=== PATIENT | female | born 1945 ===

== ENCOUNTER 2024-09-30 10:56 | Day surgery (SDC) | payer OTHER ==
[2024-09-29 11:34] LABS: Absolute Basophils 0.1 K/uL (0-0.5); Absolute Eosinophils 0.1 K/uL (0-0.5); Absolute Lymphocytes (CBC) 2.9 K/uL (0.7-4.9); Absolute Monocytes 0.6 K/uL (0.1-1.3); Absolute Neutrophil 5.7 K/uL (1.8-8.0); Basophils % 0.8 % (0-1.3); Eosinophils % 1.2 % (0-4.4); Hematocrit 35.9 % (36.0-45.0); Hemoglobin 12.6 g/dL (12.0-15.0); Lymphocytes % 30.9 % (15.3-44.8); MCH 32.4 pg (27.0-35.0); MCHC 35.2 g/dL (32.0-36.0); MPV 9.5 fL (7.6-11.3); Monocytes % 6.7 % (3.3-12.3); Neutrophils % 60.4 % (41.7-73.7); Platelets 267 thou/uL (152-406); RBC Red Blood Cell Count 3.91 M/uL (3.86-4.86); Red Cell Distribution Width 12.7 % (12.1-15.2)
[2024-09-29 11:38] LABS: PT Prothrombin Time 10.5 SECONDS (10-13.0); PTT, Activated Partial Thromb 29.1 SECONDS (27.2-37.4); Protime INR 0.92
[2024-09-29 11:46] LABS: Anion Gap 9.8 mEq/L (5.0-15.0); Potassium 3.8 mEq/L (3.5-5.1)
--- NOTE | 2024-09-29 11:48 | RAD REPORT ---
EXAMINATION: TWO VIEW CHEST XR CLINICAL INDICATION: Pre-op pending heart catheterization TECHNIQUE: 2 views of the chest was performed. COMPARISON: No prior exam. FINDINGS: The lungs are hyperexpanded suggesting COPD. The heart is upper limit of normal in size. No displaced fractures evident. IMPRESSION: COPD is suspected without acute finding identified.
--- NOTE | 2024-09-30 08:37 | EKG ---
Test Date: 2024-09-29 Test Time: 10:38:29 [employer] Se[employer] Clerk: ANGÉLICA MEASUREMENT RESULTS: Intervals: Rate: 68 RI: 204 QRSD: 72 QT: 404 QTc: 429 [place]: P: 33 RI: 204 QRS: 12 T: 16 INTERPRETIVE STATEMENTS: Sinus rhythm with fusion complexes Cannot rule out Anterior infarct, age undetermined Abnormal ECG No previous ECG available for comparison Electronically Signed On 09-30-24 08:35:40 CDT by Tripp Murillo
[2024-09-30] MEDS ORDERED: NA CHLORIDE 0.9% 500 ML ONE (10:57)
[2024-09-30] MEDS ORDERED: HEPARIN 10,000 UNIT/10 ML VIAL IV ONE (11:34)
[2024-09-30] MEDS ORDERED: CLOPIDOGREL 75 MG TABLET ONE (11:34)
[2024-09-30] MEDS ORDERED: VERAPAMIL HCL 10 MG/4 ML VIAL IV ONE (11:34)
[2024-09-30] MEDS ORDERED: ATROPINE SULF 1 MG/10 ML SYR IV ONE (11:34)
[2024-09-30] MEDS ORDERED: MIDAZOLAM HCL 2 MG/2 ML INJ ONE (11:34)
[2024-09-30] MEDS ORDERED: LIDOCAINE 1% 20 ML MDV ONE (11:34)
[2024-09-30] MEDS ORDERED: HEPA 1000U/500MLS 2,000 UNIT/1,000 ML BAG IV ONE (11:34)
[2024-09-30] MEDS ORDERED: ASPIRIN 325 MG TAB ONE (11:35)
[2024-09-30] MEDS ORDERED: FENTANYL CITR 100 MCG/2 ML ONE (11:35)
[2024-09-30] MEDS ORDERED: HEPARIN 5000 UNIT/ML 1 ML VIAL ONE (11:35)
[2024-09-30] MEDS ORDERED: TICAGRELOR 90 MG TABLET PO ONE (11:35)
[2024-09-30] MEDS ORDERED: NITROGLYCERIN/D5W 50 MG/250 ML BTL IV ONE (11:42)
--- NOTE | 2024-09-30 13:10 | OP ---
Date of Procedure: 09/30/2024 Surgeon: FAISAL HERNÁNDEZ Procedures Performed: 1. Selective coronary angiogram. 2. Left heart catheterization. 3. Right heart catheterization. Indications: 1. Aortic valve stenosis evaluation. 2. Severe shortness of breath. Access: 1. Right radial artery 6-Danish, closed with TR band. 2. Right IJ 7-Danish, closed with manual pressure. Complications: None. Bleeding: Less than 50 mL. Anesthesia: Total sedation time was 1 hour. Description Of Procedure: After risks, benefits, and alternatives were explained, the patient agreed to procedure and signed informed consent. The patient was brought into cardiac catheterization labo [facility], prepped and draped in usual sterile fashion. Then, I accessed right radial artery using pedi atric micropuncture kit and ultrasound guidance, and placed a 6-Danish Slender sheath. Then, I acces sed right IJ using micropuncture kit, ultrasound guidance, and placed 7-Danish [place] sheath and to ok a 7-Danish balloon-tipped [place] catheter through the IJ access into the right atrium, right ventric le, pulmonary artery and wedge, obtained waveform and pressure, and then measured cardiac output by t hermodilutional method and then removed the [place] and the sheath and manual pressure was used for clos ure with good hemostasis and then took a 5-Danish Clint 4 catheter over J-wire into the aortic root, engaged the RCA and then left main, took standard views and then crossed the aortic valve and exchang ed for Markel catheter, did simultaneous pressure measurements of the LV and the aorta, and pullbac k did not record any internal gradient. Then, removed the catheter and the sheath and placed TR band with good hemostasis. Findings: Coronary Angiogram: 1. Left main is normal. 2. LAD, proximal 80% to 90% stenosis. Diagonal 1 has 70% to 80% stenosis and it is a large vessel an d then the LAD in the mid segment has 70% to 80% stenosis. Rest of the LAD is normal. 3. Left circumflex, it has proximal to mid 70% stenosis and the OM has 80% stenosis in the mid segmen t. 4. RCA; it is dominant circulation with proximal to mid long 90% stenosis and distal 80% stenosis. Right heart catheterization numbers: RA pressure is 2, RV pressure is 21/1, mean of 3, PA pressure i s 22/4, mean of 9, pulmonary wedge pressure was 7. LVEDP was measured at 19 mmHg. Cardiac output wa s 3.3 L/minute. Aortic valve gradient was 26 mmHg and aortic valve area was 0.69 cm2. Conclusions: 1. Severe multivessel coronary artery disease. 2. Severe low-flow low-gradient aortic valve stenosis. Recommendation: Consult CT Surgery for CABG and aortic valve replacement. SR/MODL Voice ID: [id number] Report ID: [id number]
[2024-09-30 15:27] VITALS: BP 130/49; O2SAT 96
--- NOTE | 2024-10-04 11:38 | EKG ---
Test Date: 2024-09-29 Test Time: 10:39:14 Dermatology Nurse Practitioner: ANGÉLICA MEASUREMENT RESULTS: Intervals: Rate: 66 OK: 196 QRSD: 60 QT: 414 QTc: 434 [place]: P: 41 OK: 196 QRS: 13 T: 28 INTERPRETIVE STATEMENTS: Normal sinus rhythm Cannot rule out Anterior infarct, age undetermined Abnormal ECG Compared to ECG 09/29/2024 10:38:29 Fusion complex(es) no longer present Myocardial infarct finding still present Electronically Signed On 10-04-24 11:25:05 CDT by Tripp Murillo
== END 2024-09-30 15:37 | disposition home or self-care (01) ==
LOC: CCL 10:56
PROVIDERS: ATTEND Internal Medicine
DX: I35.0 Nonrheumatic aortic (valve) stenosis (principal); I25.10 Atherosclerotic heart disease of native coronary artery without angina pectoris; I65.29 Occlusion and stenosis of unspecified carotid artery; I10 Essential (primary) hypertension; E78.5 Hyperlipidemia, unspecified; E11.9 Type 2 diabetes mellitus without complications; Z87.891 Personal history of nicotine dependence; Z88.5 Allergy status to narcotic agent
CPT/HCPCS: 93005 ×2; 85025; 80048; 36415; 85610; 82947; 85730; 71046; 93460; 76937; C1893; Q9967; J1644; J2003; J2250; J3010; J7040; 93456; 99152; 99153; J0461

== ENCOUNTER 2024-10-04 11:25 | Day surgery (SDC) | payer OTHER ==
[2024-10-04] MEDS ORDERED: NA CHLORIDE 0.9% 500 ML ONE (11:29)
[2024-10-04] MEDS ORDERED: HEPARIN 10,000 UNIT/10 ML VIAL IV ONE (11:33)
[2024-10-04] MEDS ORDERED: HEPA 1000U/500MLS 2,000 UNIT/1,000 ML BAG IV ONE (11:33)
[2024-10-04] MEDS ORDERED: LIDOCAINE 1% 20 ML MDV ONE (11:33)
[2024-10-04] MEDS ORDERED: VERAPAMIL HCL 10 MG/4 ML VIAL IV ONE (11:33)
[2024-10-04] MEDS ORDERED: MIDAZOLAM HCL 2 MG/2 ML INJ ONE (11:34)
[2024-10-04] MEDS ORDERED: TICAGRELOR 90 MG TABLET PO ONE (11:34)
[2024-10-04] MEDS ORDERED: CLOPIDOGREL 75 MG TABLET ONE (11:34)
[2024-10-04] MEDS ORDERED: FENTANYL CITR 100 MCG/2 ML ONE (11:34)
[2024-10-04] MEDS ORDERED: HEPARIN 5000 UNIT/ML 1 ML VIAL ONE (11:34)
[2024-10-04] MEDS ORDERED: ATROPINE SULF 1 MG/10 ML SYR IV ONE (11:34)
[2024-10-04] MEDS ORDERED: ASPIRIN 325 MG TAB ONE (11:34)
[2024-10-04] MEDS ORDERED: ACETAMINOPHEN 325 MG TABLET ONE (13:32)
[2024-10-04 16:10] VITALS: O2SAT 96
[2024-10-04 16:13] VITALS: BP 142/53
--- NOTE | 2024-10-04 21:23 | OP ---
Date of Procedure: 10/04/2024 Surgeon: FAISAL HERNÁNDEZ Procedures Performed: 1. Selective angiogram of the right coronary artery. 2. Percutaneous coronary intervention of severe distal right coronary artery, used 2.75 x 60 mm Syner gy drug-eluting stent. 3. Percutaneous coronary intervention of severe proximal to mid right coronary artery stenosis, used 2.75 x 32 mm Synergy drug-eluting stent post dilated using a 3.0 x 20 mm Synergy drug-eluting stent. Indication: Unstable angina, coronary artery disease. She rejected the open surgery. Lakisha womack was brought in for a PCI of single-vessel that time. Access: Right radial artery 6-[place], closed with TR band. Complications: None. Bleeding: Less than 50 mL. Total Sedation Time: 1 hour. Description Of Procedure: After risks, benefits, and alternatives were explained, patient agreed to procedure and signed informed consent. The patient was brought into cardiac catheterization laborato ry, prepped and draped in sterile fashion. Then, I accessed right radial artery using pediatric micr opuncture kit and placed 6-[place] slender sheath and I took a 6-[place] JR4 guide with side holes into the aortic root, engaged the RCA, took Runthrough wire into the RCA, placed it distally and then usi ng a 3.0 balloon compliant, predilated the distal and the proximal to mid lesion, expanded very well, and then I placed 2.75 x 60 mm Synergy drug-eluting stent distally. Excellent expansion and the pro ximal part, also used 2.75 x 32 mm Synergy drug-eluting stent and then I used a 3.0 x 20 mm NC balloo n to postdilate the proximal stent. Excellent angiographic results at the end and the wire was remov ed. Final angiogram was satisfactory. Then, guide was removed and sheath was removed and placed TR band for closure with good hemostasis. The patient was given heparin throughout the procedure to ass ure ACT level above 250 and she was loaded with Brilinta and aspirin before the procedure was started . Findings: 1. The RCA proximal to mid 99% stenosis, status post successful PCI as above. 2. Distal RCA before the bifurcation, 80% stenosis, status post successful PCI. Rest of the RCA is n ormal. Plan: Aspirin, Brilinta, high-dose statin and we will plan to do a PCI of the LAD in 3-4 weeks and t hen the left circumflex and then will be followed by valve replacement. /SHAYY Voice ID: [id number] Report ID: [id number]
== END 2024-10-04 16:10 | disposition home or self-care (01) ==
LOC: CCL 11:25
PROVIDERS: ATTEND Internal Medicine
DX: I25.110 Atherosclerotic heart disease of native coronary artery with unstable angina pectoris (principal); I35.0 Nonrheumatic aortic (valve) stenosis; I10 Essential (primary) hypertension; E78.5 Hyperlipidemia, unspecified; E11.9 Type 2 diabetes mellitus without complications; E03.9 Hypothyroidism, unspecified; Z87.891 Personal history of nicotine dependence; Z88.5 Allergy status to narcotic agent
CPT/HCPCS: 85347 ×2; 93454; 76937; C1893; Q9967; C1725; C9600; J1644; J2003; J2250; J3010; J7040; 99152; 99153; J0461